=== PATIENT | female | born 1965 | race Caucasian/White ===

== ENCOUNTER 2018-08-02 07:09 | Emergency (ER) | payer SELFPAY ==
[~2018-08-02] VITALS: Ht 162.6 cm; Wt 53.6 kg
[2018-08-02] MEDS ORDERED: METOPROL TAR25 MG PO (07:26)
[2018-08-02] MEDS ORDERED: ADULT ASPIRIN R81 MG PO (07:27)
[2018-08-02 08:03] LABS: ANION GAP 17 (6-22 (CALC)); BUN 15 mg/dL (7-17); BUN/CREATININE RATIO 22 (12-20 (CALC)); CARBON DIOXIDE 22 mmol/l (22-30); CHLORIDE 108 mmol/l (95-108); CREATININE 0.7 mg/dL (0.5-1.0); GFR > 60 ML/MIN (>=60 (CALC)); GFR FOR AFR.AMER. > 60 ML/MIN (>=60 (CALC)); POTASSIUM 4.2 mmol/l (3.5-5.1); SODIUM 143 mmol/l (137-146)
[2018-08-02 08:13] LABS: ACT PARTIAL THROMBO TIME 25.9 SECONDS (20.0-32.5); HEMATOCRIT 48.6 % (37.0-47.0); HEMOGLOBIN 16.1 g/dl (12.0-16.0); IMMATURE GRANULOCYTES 0.6 % (0.0-5.0); MEAN CELL VOLUME 93.1 fL CALC (80.0-100.0); MEAN CORPUSCULAR HGB 30.8 pG CALC (26.0-32.0); MEAN CORPUSCULAR HGB CONC 33.1 g/L CALC (32.0-36.0); NEUT# 13.57 thou/uL (2.00-7.15); PROTHROMBIN TIME 10.8 SECONDS (9.0-12.5); RED BLOOD COUNT 5.22 mill/uL (4.20-5.60); RED CELL DISTRI WIDTH 12.6 % (11.5-15.5)
[2018-08-02 09:31] VITALS: BP 133/91
== END 2018-08-02 09:38 | disposition short-term general hospital (02) | DRG 310 ==
LOC: ED 07:09
PROVIDERS: Family Medicine
PROC: 05HM33Z Insertion of Infusion Device into Right Internal Jugular Vein, Percutaneous Approach (ICD-10-PCS; principal; 2018-08-02)
DX: I48.91 Unspecified atrial fibrillation (principal); R00.2 Palpitations; R11.0 Nausea; R07.9 Chest pain, unspecified; F17.210 Nicotine dependence, cigarettes, uncomplicated; R94.31 Abnormal electrocardiogram [ECG] [EKG]; Z86.73 Personal history of transient ischemic attack (TIA), and cerebral infarction without residual deficits
CPT/HCPCS: J1644; J2060

== ENCOUNTER 2020-03-04 20:50 | Emergency (ER) | payer BC ==
[~2020-03-04] VITALS: Ht 162.6 cm; Wt 54.1 kg
[~2020-03-04 20:50] MED LIST: ADULT ASPIRIN R81 MG PO; METOPROL TAR25 MG PO
[2020-03-04] MEDS ORDERED: DOXYCYCL HYC100 MG PO (22:18)
[2020-03-04 22:25] VITALS: BP 118/62
== END 2020-03-04 22:26 | disposition home or self-care (01) | DRG 603 ==
LOC: ED 20:50
DX: L08.9 Local infection of the skin and subcutaneous tissue, unspecified (principal); K04.7 Periapical abscess without sinus; K05.10 Chronic gingivitis, plaque induced; F17.200 Nicotine dependence, unspecified, uncomplicated

== ENCOUNTER 2022-05-23 13:50 | Emergency (ER) | payer MEDICAID ==
[2022-05-23] VITALS (7 sets, daily range): BP systolic 154–176; BP diastolic 73–92
[~2022-05-23] VITALS: Ht 162.6 cm; Wt 58.0 kg
[~2022-05-23 13:50] MED LIST changes: +DOXYCYCL HYC100 MG PO
[2022-05-23 14:51] LABS: URINE BLOOD DIPSTICK LARGE (NEGATIVE); URINE GLUCOSE - DIPSTICK NEGATIVE (NEGATIVE); URINE KETONE 15 mg/dL (NEGATIVE); URINE LEUK ESTERASE NEGATIVE (NEGATIVE); URINE PH 5.5 (4.5-8.0); URINE PROTEIN - DIPSTICK TRACE mg/dL (NEG-TRACE); URINE SPECIFIC GRAVITY >=1.030
[2022-05-23 14:55] LABS: URINE BILIRUBIN - DIPSTICK SMALL (NEGATIVE); URINE COLOR DK. YELLOW; URINE NITRITE - DIPSTICK NEGATIVE (Negative)
[2022-05-23 15:01] LABS: URINE SQUAMOUS EPITHELIAL CELL RARE EPI/hpf (0-FEW)
[2022-05-23 15:22] LABS: BASO% 0.1 % (0-3); EOS% 0.6 % (0-8); HEMATOCRIT 50.6 % (37.0-47.0); HEMOGLOBIN 16.6 g/dl (12.0-16.0); IMMATURE GRANULOCYTES 0.1 % (0.0-5.0); LYMPH% 25.3 % (15-41); MEAN CELL VOLUME 91.8 fL CALC (80.0-100.0); MEAN CORPUSCULAR HGB 30.1 pG CALC (26.0-32.0); MEAN CORPUSCULAR HGB CONC 32.8 g/dL CAL (32.0-36.0); MONO% 8.5 % (2-13); NEUT# 4.7 thou/uL (2.00-7.15); NEUT% 65.4 % (42-76); RED BLOOD COUNT 5.51 mill/uL (4.20-5.60); RED CELL DISTRI WIDTH 12.9 % (11.5-15.5)
[2022-05-23 15:32] LABS: ALKALINE PHOSPHATASE 116 u/l (38-126); BILIRUBIN, TOTAL 0.7 mg/dL (0.02-1.3); BUN 12 mg/dL (7-17); BUN/CREATININE RATIO 16 (12-20 (CALC)); CHLORIDE 103 mmol/l (95-108); CREATININE 0.7 mg/dL (0.5-1.0); GFR FOR AFR.AMER. > 60 ML/MIN (>=60 (CALC)); GFR OTHER RACES > 60 ML/MIN (>=60 (CALC)); SGOT/AST 41 u/l (14-36); SODIUM 139 mmol/l (137-146); TOTAL PROTEIN 8.2 g/dL (6.3-8.2)
[2022-05-23 15:33] LABS: ANION GAP 12 (6-22 (CALC)); CARBON DIOXIDE 29 mmol/l (22-30); POTASSIUM 5.4 mmol/l (3.5-5.1)
[2022-05-23] MEDS ORDERED: MEDDOSEPAK PO (17:06)
[2022-05-23] MEDS ORDERED: NAPROXEN500 MG PO (17:06)
== END 2022-05-23 17:55 | disposition home or self-care (01) ==
LOC: ED 13:50
PROVIDERS: Nurse Practitioner
DX: S32.010A Wedge compression fracture of first lumbar vertebra, initial encounter for closed fracture (principal); I10 Essential (primary) hypertension; F17.220 Nicotine dependence, chewing tobacco, uncomplicated; I25.2 Old myocardial infarction; W18.30XA Fall on same level, unspecified, initial encounter; Y92.009 Unspecified place in unspecified non-institutional (private) residence as the place of occurrence of the external cause; Z86.73 Personal history of transient ischemic attack (TIA), and cerebral infarction without residual deficits